=== PATIENT | female | born 1990 | race Hispanic/Latino ===

== ENCOUNTER 2023-12-18 05:30 | Inpatient (IN) | payer MEDICAID, OTHER, SELFPAY ==
[~2023-12-18 05:30] MED LIST: Carboprost 250 MCG/ML AMP IM PRN; Diphenoxylate HCl/Atropine Tablet PO PRN; Docusate 100 MG CAP PO PRN; Lactated Ringer's 1,000 ML IV SCH; Lidocaine 1% (PF) 30 ML VIAL SC PRN; Methylergonovine 0.2 MG/ML VIAL IM PRN; Misoprostol 200 MCG TAB PR PRN; Ondansetron PF 4 MG/2 ML Vial IVP PRN; Oxytocin 30 units/NS 500 ML 500 ML IV SCH; Promethazine HCl 25 MG/ML VIAL IM PRN; Tranexamic Acid 1,000 MG/10 ML VIAL IVP PRN; hydrALAZINE 20 MG/ML VIAL SLOW IVP PRN
== END 2023-12-18 15:00 | disposition home or self-care (01) | DRG 833 ==
LOC: CSHLD 12:27
PROVIDERS: ADMIT Obstetrics & Gynecology; ATTEND Obstetrics & Gynecology
DX: O98.313 Other infections with a predominantly sexual mode of transmission complicating pregnancy, third trimester (principal); Z90.49 Acquired absence of other specified parts of digestive tract; Z83.3 Family history of diabetes mellitus; Z82.49 Family history of ischemic heart disease and other diseases of the circulatory system; Z3A.39 39 weeks gestation of pregnancy; Z79.899 Other long term (current) drug therapy; A63.0 Anogenital (venereal) warts

== ENCOUNTER 2023-12-18 21:54 | Inpatient (IN) | payer MEDICAID, SELFPAY ==
[2023-12-18] MEDS ORDERED: hydrALAZINE 20 MG/ML VIAL SLOW IVP PRN (22:33)
[2023-12-18 22:37] VITALS: BMI 29.2
[2023-12-18 22:55] LABS: Fetal Membranes Rupture RUPTURE DETECTED (No Rupture)
[2023-12-18] MEDS ORDERED: Promethazine HCl 25 MG/ML VIAL IM PRN (23:20)
[2023-12-18] MEDS ORDERED: Lidocaine 1% (PF) 30 ML VIAL SC PRN (23:20)
[2023-12-18] MEDS ORDERED: Tranexamic Acid 1,000 MG/10 ML VIAL IVP PRN (23:20)
[2023-12-18] MEDS ORDERED: Acetaminophen 500 MG TAB PO PRN (23:20)
[2023-12-18] MEDS ORDERED: Ondansetron PF 4 MG/2 ML Vial IVP PRN (23:20)
[2023-12-18] MEDS ORDERED: Docusate 100 MG CAP PO PRN (23:20)
[2023-12-18] MEDS ORDERED: Carboprost 250 MCG/ML AMP IM PRN (23:20)
[2023-12-18] MEDS ORDERED: Methylergonovine 0.2 MG/ML VIAL IM PRN (23:20)
[2023-12-18] MEDS ORDERED: Diphenoxylate HCl/Atropine Tablet PO PRN (23:20)
[2023-12-18] MEDS ORDERED: Misoprostol 200 MCG TAB PR PRN (23:20)
[2023-12-18] MEDS ORDERED: Oxytocin 30 units/NS 500 ML 500 ML IV SCH ×2 (23:30)
[2023-12-18 23:57] LABS: Hematocrit 38.8 % (34.9-44.5); Hemoglobin 12.9 g/dL (12.0-15.5); Mean Corpuscular HGB CONC 33.2 g/dL (32.0-36.0); Mean Corpuscular Hemoglobin 27.9 pg (27.0-33.0); Platelet Count 159 10x3/uL (150-450); RBC Distribution Width 14.3 % (11.5-14.5); Red Blood Cell (RBC) Count 4.62 10x6/uL (3.90-5.03); White Blood Cell (WBC) Count 7.1 10x3/uL (3.5-10.5)
[2023-12-19] MEDS: Lactated Ringer's 1,000 ML IV SCH (00:02)
[2023-12-19] MEDS: Oxytocin 30 units/NS 500 ML 500 ML IV SCH (00:02)
[2023-12-19 00:05] LABS: HBsAg Index 0.22 S/CO (0-0.99); Hep B Surf Ag - L&D Non-Reactive S/CO (NonReactive)
[2023-12-19 00:06] LABS: Syphilis Antibody Nonreactive (Nonreactive); Syphilis Antibody Index 0.07 S/CO (<1.00 Non-Reactive)
[2023-12-19] MEDS: fentaNYL/Ropivacaine Epidural 100 ML ONE (05:28)
[2023-12-19] MEDS ORDERED: ePHEDrine Sulfate 50 MG/10 ML VIAL SLOW IVP PRN (06:05)
[2023-12-19] MEDS ORDERED: Naloxone HCl 0.4 mg/ml Vial IVP PRN ×2 (06:05)
[2023-12-19] MEDS ORDERED: Moisturizing Cream (Eucerin) 113 GM JAR TOP PRN (06:05)
[2023-12-19] MEDS ORDERED: Ondansetron PF 4 MG/2 ML Vial IVP PRN (06:05)
[2023-12-19] MEDS ORDERED: Promethazine HCl 25 MG/ML VIAL IM PRN (06:05)
[2023-12-19] MEDS ORDERED: diphenhydrAMINE 50 MG/ML VIAL IVP PRN (06:05)
[2023-12-19] MEDS ORDERED: Lactated Ringer's 500 ML IV PRN (06:05)
[2023-12-19] MEDS ORDERED: Communication Order-Pharmacy FS SCH (06:15)
[2023-12-19] MEDS: fentaNYL 2 mcg/Ropivacaine 0.2% Epidural 100 ML CADD EPIDURAL SCH (15:52)
[2023-12-19] MEDS ORDERED: Misoprostol 200 MCG TAB VAG PRN (17:59)
[2023-12-19] MEDS ORDERED: HYDROcodone/Acetaminophen 5/325 mg Tablet PO PRN (17:59)
[2023-12-19] MEDS ORDERED: Methylergonovine 0.2 MG/ML VIAL IM PRN (17:59)
[2023-12-19] MEDS ORDERED: Bisacodyl 10 MG SUPP PR PRN (17:59)
[2023-12-19] MEDS ORDERED: hydrALAZINE 20 MG/ML VIAL SLOW IVP PRN (17:59)
[2023-12-19] MEDS ORDERED: Milk Of Magnesia 30 ML UDCUP PO PRN (17:59)
[2023-12-19] MEDS ORDERED: Lanolin Ointment 7 GM TUBE TOP PRN (17:59)
[2023-12-19] MEDS ORDERED: Preparation H Ointment 28 GM TUBE PR PRN (17:59)
[2023-12-19] MEDS ORDERED: Oxytocin 30 units/NS 500 ML 500 ML IV SCH (18:00)
[2023-12-19] MEDS: Ibuprofen 800 MG TAB PO SCH (20:46)
[2023-12-19] MEDS: Docusate 100 MG CAP PO SCH (20:47)
[2023-12-20] MEDS: Acetaminophen 325 MG TAB PO PRN (01:44)
[2023-12-20 05:49] LABS: #Basophils 0.01 10x3/uL (0.0-0.2); #Eosinphils 0.08 10x3/uL (0.0-0.5); #Monocytes 0.73 10x3/uL (0.0-1.1); #Neutrophils 7.16 10x3/uL (1.5-8.4); %Basophils 0.1 % (0.0-2.0); %Eosinophils 0.8 % (0.0-6.0); %Lymphocytes 18.1 % (18.0-47.0); %Monocytes 7.4 % (0.0-10.0); %Neutrophils 73.1 % (40.0-75.0); Hemoglobin 10.9 g/dL (12.0-15.5); Mean Corpuscular HGB CONC 34.1 g/dL (32.0-36.0); Mean Corpuscular Hemoglobin 28.5 pg (27.0-33.0); Mean Corpuscular Volume 83.8 fL (81.6-98.3); Mean Platelet Volume 11.5 fL (7.4-10.4); Platelet Count 138 10x3/uL (150-450); RBC Distribution Width 14.5 % (11.5-14.5); Red Blood Cell (RBC) Count 3.82 10x6/uL (3.90-5.03); White Blood Cell (WBC) Count 9.4 10x3/uL (3.5-10.5)
[2023-12-20] MEDS ORDERED: Simethicone Chewable 80 MG TAB PO PRN (07:06)
[2023-12-20] MEDS: Ferrous Sulfate 325 MG TAB PO SCH (07:39)
[2023-12-20] MEDS: Acetaminophen 325 MG TAB PO SCH (07:39)
[2023-12-20] MEDS ORDERED: Boostrix 0.5 ML (Tdap) VIAL (>/=7 yrs of age) IM ONE (09:00)
[2023-12-20 12:31] VITALS: TEMP 98
[2023-12-20] MEDS ORDERED: Bupivacaine 0.25% HCL 30 ML VIAL ONE (13:00)
[2023-12-20 16:07] VITALS: BP 101/55
== END 2023-12-20 18:30 | disposition home or self-care (01) | DRG 807 ==
LOC: CSHLD/OP 21:54 → CSHLD 23:05 → CSHPP 12-19 19:45
PROVIDERS: ADMIT Student in an Organized Health Care Education/Training Program; ATTEND Student in an Organized Health Care Education/Training Program
PROC: 10E0XZZ Delivery of Products of Conception, External Approach (ICD-10-PCS; principal; 2023-12-19)
DX: O99.284 Endocrine, nutritional and metabolic diseases complicating childbirth (principal); Z37.0 Single live birth; E28.2 Polycystic ovarian syndrome; O76 Abnormality in fetal heart rate and rhythm complicating labor and delivery; Z3A.39 39 weeks gestation of pregnancy
CPT/HCPCS: 36415; 51702; 84112; 85025; 85027; 86780; 86850; 86900; 86901; 87340; 99285; J0665; J2590; J7120